=== PATIENT | male | born 2005 | race Caucasian/White ===

== ENCOUNTER 2024-06-18 14:32 | Emergency (ER) | payer OTHER ==
[~2024-06-18] VITALS: Ht 170.2 cm; Wt 78.5 kg
== END 2024-06-18 15:57 | disposition home or self-care (01) ==
LOC: ER 14:32
DX: T78.40XA Allergy, unspecified, initial encounter (principal); Z91.012 Allergy to eggs; Z91.011 Allergy to milk products; Z91.018 Allergy to other foods
CPT/HCPCS: 99283